=== PATIENT | male | born 1970 | race Caucasian/White ===

== ENCOUNTER 2016-10-07 20:58 | Emergency (ER) | payer BC, OTHER ==
[2016-10-07 21:28] LABS: Hematocrit 43.5 % (42.0-52.0); Mean Cell Volume 86.5 fl (78-100); Mean Corpuscular Hemoglobin 29.8 pg (27-31); Mean Corpuscular Hgb Conc 34.5 g/dl (32-36); Neutrophil % 64.8 % (42-75.0); Platelet Count 118 K/mm3 (150-450); Red Blood Count 5.03 M/mm3 (4.7-6.0); White Blood Count 6.2 K/mm3 (4.0-10.5)
--- NOTE | 2016-10-07 21:30 | ERNOTE ---
Chest Pain/Cardiac HPI Date of Service: 10/07/16 Chief Complaint: Palpitations Time Seen by Provider: 10/07/16 21:10 Source: patient Exam Limitations: no limitations Immunizations: IMMUNIZATION HX Immunizations Up to Date Yes History of Influenza Vaccine Yes Hx Pneumococcal Vaccination Yes Allergies/Adverse Reactions: Allergies No Known Allergies Allergy (Unverified 10/07/16 21:10) Home Medications: HOME MEDICATIONS Atorvastatin Calcium 40 mg PO DAILY 10/07/16 [Last Taken Unknown] Levothyroxine Sodium [Synthroid] 50 mcg PO DAILY 10/07/16 [Last Taken Unknown] Narrative: Pt. comes in with c/o occasional skipped beat feeling from his heart that feels like a fluttering. Pt. states that he noticed this first two weeks ago and states that it is intermittent and occurs for a few seconds and causes him to breathe harder for the time and denies any nausea or dizziness, fever, recent illness, alleviating or aggravating factors, Chest pain, or prehospital treatment. Pt. has a hx of thyroid dysfunction and is non Synthroid and states that his dad has had bypass surgery at the age of 70, but denies any other significant hx. Review of Systems - Review of Systems Constitutional: Present: no symptoms reported. Absent: fever, chills, weakness , fatigue, malaise EYE: Present: no symptoms reported ENT: Present: no symptoms reported Respiratory: Present: no symptoms reported. Absent: shortness of breath, cough , wheezing Cardiology: Present: palpitations. Absent: chest pain, syncope, edema Gastrointestinal/Abdominal: Present: no symptoms reported. Absent: nausea, vomiting, diarrhea Genitourinary: Present: no symptoms reported Musculoskeletal: Present: no symptoms reported. Absent: back pain, joint pain Skin: Present: no symptoms reported. Absent: rash, change in hair/nails Neurological: Present: no symptoms reported. Absent: headache, dizziness/light- headedness, numbness, tingling All Other Systems: All systems neg except as marked - Patient's Past Medical History Patient History - Medical: Hypothyroidism Patient History - Cardiac/Respiratory: Hyperlipidemia Patient History - Cancer: No Hx of Cancer Patient History - Surgical Procedures: Appendectomy Patient History - Other: None - Social History Living Situations: home Psych History: No pertinent hx Smoking Status: Never smoker Alcohol Use: none Drug Use: none - Immunizations Immunizations Up to Date: Yes Hx Pneumococcal Vaccination: Yes History of Influenza Vaccine: Yes Physical Exam - Physical Exam General Appearance: Present: wd/wn, alert, no apparent distress Head Exam: Present: normal inspection, no evidence of injury Eye Exam: Normal inspection: bilateral, PERRL: bilateral, EOMI: bilateral Ears, Nose, Throat: Present: normal ENT inspection, normal pharynx Neck: Present: normal inspection, nontender. Absent: lymphadenopathy (R), lymphadenopathy (L), thyromegaly Respiratory: Present: no respiratory distress, normal breath sounds, no accessory muscle use, chest nontender, lungs clear Cardiovascular/Chest: Present: regular rate, rhythm, no murmur, normal peripheral pulses Gastrointestinal/Abdominal: Present: normal bowel sounds, nontender, nondistended, soft, no organomegaly Back Exam: Present: normal inspection, normal range of motion, no CVA tenderness , no vertebral tenderness Extremity Exam: Present: normal inspection, non-tender, normal range of motion, no edema Neurological Exam: Present: alert, oriented, normal mood/affect, no motor/ sensory deficits, pot fisher II-XII nml as tested, normal cerebellar test Skin Exam: Present: normal color, warm/dry. Absent: pallor, skin rash ED Progress - Date and Time Seen: Date and Time: 10/07/16 21:28 Pt. with mild hypertension and no palpitation episodes while here or abnormalities noted on EKG. 10/07/16 21:53 TSH and Free T4 are normal therefore pt. will follow up with PCP in the morning by calling office for first available appointment for possible holter need per Dr Vasques recommendations as palpitations are not very long or severe. - Vital Signs Patient's Vital Signs:: I have reviewed the patient's vital signs. Vital Signs: Vital Signs 10/07/16 21:02 Temperature 37.2 C Pulse Rate 93 Respiratory 16 Rate Blood Pressure 152/100 O2 Sat by Pulse 96 Oximetry - EKG EKG: other - Sinus tach no acute. EKG read: Reviewed by me EKG Comments: Interp by Dr Vasques - X-Ray X-Ray #1 X-Ray: chest Interpretation: Interp. by me X-ray Comments: No acute process no cardiomegaly - Progress/Reassessment Chief Complaint: Palpitations Departure - Departure Clinical Impression: Palpitations Disposition: Home self-care Condition: Good Instructions: Palpitations, [id number] Additional Instructions: Please call primary providers office in the morning to discuss further testing and follow up. Referrals: Mayco Burns DO [Primary Care Provider] -
[2016-10-07 21:50] LABS: ALT 30 U/L (19-67); AST 17 U/L (0-48); Albumin * 3.8 gm/dl (3.4-5.0); Alkaline Phosphatase * 88 U/L (50-170); Anion Gap 15.4 mmol/L (6.8-13.8); BUN/Creatinine Ratio 15.8 (9.0-21.6); Bilirubin, Total 0.4 mg/dL (0.0-1.1); Blood Urea Nitrogen 18 mg/dL (6-23); Ca. Corrected For Albumin 8.5 mg/dL (8.4-10.2); Calcium * 8.7 mg/dL (7.9-10.9); Carbon Dioxide 24.3 mmol/L (24-32.6); Chloride 106 mmol/L (97-106); Glucose * 181 mg/dL (70-110); Potassium 3.7 mmol/L (3.4-4.6); Sodium 142 mmol/L (132-142); T4 Free * 0.94 ng/dL (0.76-1.46); TSH * 3.519 uIU/mL (0.358-3.74); Total Protein 7.1 gm/dL (6.2-8.2)
[2016-10-07 21:51] LABS: Troponin I Less than 0.017 ng/ml (0.00-0.10)
[2016-10-07 21:58] LABS: Urine Appearance Clear; Urine Bilirubin Negative (NEGATIVE); Urine Color Yellow; Urine Ketone Negative (NEGATIVE)
[2016-10-07 21:59] LABS: Urine Bacteria None Seen; Urine Blood Negative /ul (NEGATIVE); Urine Nitrite Negative (NEGATIVE); Urine Protein Negative (NEGATIVE); Urine RBC None Seen /hpf (0-5); Urine Specific Gravity 1.025 SP.GR. (1.005-1.030); Urine Urobilinogen Normal (NORMAL); Urine WBC None Seen /hpf (0-5)
[2016-10-07 22:05] LABS: Cocaine Ur Negative (NEGATIVE); Urine Barbiturate Negative (NEGATIVE); Urine Benzodiazepines Negative (NEGATIVE); Urine Opiates Negative (NEGATIVE); Urine PCP Negative (NEGATIVE); Urine THC Negative (NEGATIVE)
[2016-10-07 22:08] VITALS: BP 142/86
== END 2016-10-07 22:09 | disposition home or self-care (01) ==
LOC: ER 20:58
DX: R00.2 Palpitations (principal); E03.9 Hypothyroidism, unspecified; E78.5 Hyperlipidemia, unspecified